=== PATIENT | female | born 1960 | race Caucasian/White ===

== ENCOUNTER 2017-12-30 15:18 | Inpatient (IN) ==
--- NOTE | 2017-12-30 15:44 | Emergency Department Note ---
Disposition Clinical Impression: DVT (deep venous thrombosis) Qualifiers: DVT location: lower extremity Affected thrombotic vein of extremity: popliteal Chronicity: acute Laterality: left Qualified Code(s): I82.432 - Acute embolism and thrombosis of left popliteal vein Disposition: Admitted As Inpatient Condition: Good Referrals: Terrance Ballesteros MD [Primary Care Provider] - Forms: ED Satisfaction Letter Time of Disposition: 17:54 Extremity Problem HPI - General Chief complaint: ED Extremity Problem,Nontraumatic Stated complaint: POSSIBLE DVT LEFT LEG Time Seen by Provider: 12/30/17 15:31 Source: patient Mode of arrival: ambulatory Limitations: no limitations Nursing Notes Reviewed: Yes Vital Signs Reviewed: Yes - History of Present Illness HPI Narrative: This is a 57 year-old female with history of HTN, HLD, DM, and DVT. She presents with left leg pain and swelling, from the posterior knee, down the leg (mainly the lateral aspect), to the left ankle. Symptoms began gradually 3 days ago without any trauma or other inciting event and have been worsening since then. Patient denies any associated chest pain, dyspnea, or skin changes. She had a DVT 3-4 days, treated with Lovenox and then Coumadin, and she is concerned that she may have again developed a DVT. Pt Subjective Complaint: extremity pain, extremity swelling Onset (ago): day(s) (3) Consistency: constant, Worsening Injury Location: left, lower extremity Pain Scale: 8 Quality: burning Improves with: nothing Worsens with: walking Associated symptoms: Reports: denies other symptoms. Denies: chest pain, shortness of breath, change in appearance, redness Context: history of DVT - Related Data Home Medications Medication Instructions Recorded Confirmed Furosemide [Lasix] 20 mg PO DAILY 10/12/17 11/16/17 Gabapentin [Neurontin] 3,000 mg PO TID 10/12/17 11/16/17 Losartan/HCTZ [Hyzaar 50-12.5 1 tab PO DAILY 10/12/17 11/16/17 Tablet] Metoprolol [Lopressor] 50 mg PO DAILY 10/12/17 11/16/17 Pravastatin Sodium [Pravachol] 20 mg PO DAILY 10/12/17 11/16/17 metFORMIN [Glucophage] 500 mg PO BIDWM 10/12/17 11/16/17 Previous Rx's Medication Instructions Recorded Cyclobenzaprine [Flexeril] 10 mg PO TID #30 tablet 11/11/16 Allergies Allergy/AdvReac Type Severity Reaction Status Date / Time acetaminophen [From Vicodin] AdvReac Nausea Verified 12/30/17 15:22 hydrocodone [From Vicodin] AdvReac Nausea Verified 12/30/17 15:22 Sulfa (Sulfonamide AdvReac Nausea Verified 12/30/17 15:22 Antibiotics) All systems ED: reviewed and negative except as stated. Constitutional: Denies: fever Cardiovascular: Denies: chest pain, palpitations Respiratory: Denies: dyspnea Gastrointestinal: Denies: abdominal pain Integumentary: Denies: rash, lesions Neurological: Denies: weakness, numbness Past Medical History - Past Medical History Medical history: Reports: arthritis, DVT, diabetes, fibromyalgia, GERD, hyperlipidemia, hypertension Surgical history: Reports: appendectomy, cholecystectomy, hysterectomy, other Psychiatric history: Reports: anxiety, depression - Social History Smoking Status: Never smoker Smokeless Tobacco Status: No Alcohol use: Reports: none Drug use: Reports: none Physical Exam - General Limitations: no limitations General appearance: alert, in no apparent distress - Head Head exam: atraumatic, normocephalic - Eye Eye exam: Present: normal appearance - Neck Neck exam: Present: normal inspection - Cardiovascular Cardiovascular exam: Present: regular rate, normal rhythm, normal heart sounds - Abdominal Exam Abdominal exam: Present: soft, Non-Tender. Absent: distention - Expanded Lower Extremity Exam Upper leg exam: Present: normal inspection Knee exam: Present: normal inspection, full ROM, tenderness (popliteal fossa). Absent: swelling Lower leg exam: Present: normal inspection, full ROM, tenderness (lateral aspect of left leg). Absent: swelling, ecchymosis, erythema, palpable cord Ankle exam: Present: normal inspection, full ROM. Absent: tenderness, swelling Foot/toe exam: Present: normal inspection, full ROM. Absent: tenderness, swelling Neurovascular/Tendon exam: Present: normal capillary refill. Absent: pulse deficit, motor deficit, sensory deficit, extremity cold to touch, pallor - Neurological Exam Neurological exam: Present: alert, oriented X3. Absent: motor sensory deficit - Psychiatric Psychiatric exam: Present: normal affect, normal mood - Skin Skin exam: Present: warm, dry, intact. Absent: erythema, pallor, mottled Course - Reevaluation(s) Reevaluation #1: Discussed duplex result with the foundry technician. Patient has LLE DVT from the popliteal distal (posterior tibial, peroneal). I'm not finding any absolute contraindications to outpatient therapy (proximal clot, evidence of PE, active cancer, elevated bleeding risk, etc.). I talked with patient about inpatient vs. outpatient management. She requests inpatient management. She is especially concerned as her mother from DVT/PE. Time: 16:59 - Consultations Consultation #1: Paged hospitalist. Time: 17:00 Consultation #2: Discussed case with Dr. Valencia. He would like to treat with Lovenox and has accepted patient for admission. Time: 17:53 Vital Signs Temperature 98.1 F 12/30/17 15:20 Pulse Rate 104 12/30/17 15:20 Respiratory Rate 16 12/30/17 15:20 Blood Pressure 164/94 12/30/17 15:20 O2 Sat by Pulse Oximetry 98 12/30/17 15:20 Temperature 98.1 F 12/30/17 15:20 Pulse Rate 101 12/30/17 15:50 Respiratory Rate 16 12/30/17 15:50 Blood Pressure 141/84 12/30/17 15:50 O2 Sat by Pulse Oximetry 96 12/30/17 15:50 Oxygen Delivery Oxygen Delivery Room Air Extremity Problem, Nontraumati - MDM Narrative Medical decision making narrative: This is a 57 year-old female with history of DVT, apparently unprovoked, who presented with left leg pain for the past 3 days. There is no history of trauma and there are no findings to suggest cellulitis. Although there is no objective swelling on exam, DVT is the most important differential to rule out. If duplex study is negative, we will recommend symptomatic treatment and close outpatient follow-up. - Lab Data Lab results reviewed: Yes I reviewed the patient's lab results. Result diagrams: 12/30/17 15:49 12/30/17 15:49 Lab Results 12/30/17 12/30/17 12/30/17 Range/Units 15:49 15:49 15:49 WBC 6.7 (4.3-11.1) K/mcL RBC 4.27 (3.82-4.97) M/mcL Hgb 12.1 (11.5-15.4) g/dL Hct 36.9 (35.3-44.9) % MCV 86.4 (83.0-100.0) fL MCH 28.3 (28.0-33.3) pg MCHC 32.8 (31.6-35.5) g/dL RDW 12.7 (11.5-14.5) % Plt Count 295 (140-400) K/mcL MPV 8.5 L (9.4-12.4) fL Immature Gran % 0.1 (0-4) % Seg Neutrophils % 54.2 % Lymphocytes % 34.6 % Monocytes % 7.1 % Eosinophils % 3.4 % Basophils % 0.6 % Neutrophils # 3.7 (1.6-8.9) K/mcL Lymphocytes # 2.3 (0.6-4.6) K/mcL Monocytes # 0.5 (0.0-1.3) K/mcL Eosinophils # 0.2 (0.0-0.6) K/mcL Basophils # 0.0 (0.0-0.2) K/mcL PT 10.6 (9.4-12.1) Seconds INR 1.0 APTT 29.2 (26.0-36.0) Seconds Sodium 139 (136-145) mEq/L Potassium 3.9 (3.5-5.1) mEq/L Chloride 104 (98-107) mEq/L Carbon Dioxide 27 (23-29) mEq/L BUN 12 (6-20) mg/dL Creatinine 0.50 L (0.60-1.20) mg/dL Est GFR ( Amer) > 60 (> 60) Est GFR (Non-Af Amer) > 60 (> 60) BUN/Creatinine Ratio 24 (6-26) Glucose 175 H (70-105) mg/dL Calculated Osmolality 292 (280-300) Calcium 9.5 (8.6-10.3) mg/dL
[2017-12-30 16:16] LABS: Basophils % 0.6 %; Eosinophils # 0.2 K/mcL (0.0-0.6); Eosinophils % 3.4 %; Hematocrit 36.9 % (35.3-44.9); Hemoglobin 12.1 g/dL (11.5-15.4); Immature Granulocytes % 0.1 % (0-4); Lymphocytes # 2.3 K/mcL (0.6-4.6); Lymphocytes % 34.6 %; Mean Corpuscular HGB Conc 32.8 g/dL (31.6-35.5); Mean Corpuscular Hemoglobin 28.3 pg (28.0-33.3); Mean Corpuscular Volume 86.4 fL (83.0-100.0); Mean Platelet Volume 8.5 fL (9.4-12.4); Monocytes # 0.5 K/mcL (0.0-1.3); Monocytes % 7.1 %; Neutrophils # 3.7 K/mcL (1.6-8.9); Platelet Count 295 K/mcL (140-400); Red Blood Count 4.27 M/mcL (3.82-4.97); Red Cell Distribution Width 12.7 % (11.5-14.5); Segmented Neutrophils % 54.2 %
[2017-12-30 16:22] LABS: Prothrombin Time 10.6 Seconds (9.4-12.1)
[2017-12-30 16:24] LABS: Activated Partial Thrombo Time 29.2 Seconds (26.0-36.0)
[2017-12-30 16:31] LABS: BUN/Creatinine Ratio 24 (6-26); Blood Urea Nitrogen 12 mg/dL (6-20); Calcium 9.5 mg/dL (8.6-10.3); Carbon Dioxide 27 mEq/L (23-29); Chloride 104 mEq/L (98-107); Glucose 175 mg/dL (70-105); Osmolality,Calculated 292 (280-300); Potassium 3.9 mEq/L (3.5-5.1); Sodium 139 mEq/L (136-145); eGFR For African Americans > 60 (> 60); eGFR For Non-African Americans > 60 (> 60)
[2017-12-30] MEDS ORDERED: *HR* Enoxaparin 30 MG/0.3 ML SYRINGE SQ ONE (17:52)
[2017-12-30] MEDS ORDERED: *HR* Nalbuphine 10 MG/ML AMPUL IVP STA (18:08)
--- NOTE | 2017-12-30 20:18 | Internal Med History&Physical ---
<Mc Garzon P - Last Filed: 12/30/17 21:22> Date of Encounter: 12/30/17 Internal Medicine - H&P: HPI History of present illness: Ms. Menard is a 57 year old female Internal Medicine - H&P: Meds Cyclobenzaprine [Flexeril] 10 mg PO TID #30 tablet 11/11/16 [Rx] Losartan/HCTZ [Hyzaar 50-12.5 Tablet] 1 tab PO DAILY 10/12/17 [History] Metoprolol [Lopressor] 25 mg PO BID 10/12/17 [History] Pravastatin Sodium [Pravachol] 20 mg PO DAILY 10/12/17 [History] RX: Furosemide [Lasix] 20 mg PO DAILY 10/12/17 [History] RX: Gabapentin [Neurontin] 300 mg PO TID 10/12/17 [History] metFORMIN [Glucophage] 500 mg PO BIDWM 10/12/17 [History] 3 Allergy/AdvReac Type Severity Reaction Status Date / Time No Known Drug Allergies Allergy None Verified 12/30/17 22:05 acetaminophen [From Vicodin] AdvReac Mild Nausea Verified 12/30/17 21:49 hydrocodone [From Vicodin] AdvReac Mild Nausea Verified 12/30/17 21:49 milnacipran [From Savella] AdvReac Mild Nausea Verified 12/30/17 21:49 Sulfa (Sulfonamide AdvReac Mild Nausea Verified 12/30/17 21:49 Antibiotics) All Systems PM: A 10-system review of systems was performed and is negative for pertinent findings except as documented above in the HPI. - Constitutional Vitals: Temp Pulse Resp BP Pulse Ox 98.2 F 86 17 117/77 95 12/30/17 18:57 12/30/17 18:57 12/30/17 18:57 12/30/17 18:57 12/30/17 20:12 Internal Med - H&P Results - Labs CBC & Chem 7: 12/30/17 15:49 12/30/17 15:49 - Attending Attestation I examined this patient and my medical decision-making was reviewed with the Resident Physician. I agree with the documented findings, disposition and treatment plan as described except to the extent set forth below. agree with assessment and plan bridging from lovenox to coumadin in patient close monitoring of respiratory status. - Assessment and plan (1) DVT (deep venous thrombosis) Current Visit: Yes Status: Acute Qualifiers: DVT location: lower extremity Affected thrombotic vein of extremity: popliteal Chronicity: acute Laterality: left Qualified Code(s): I82.432 - Acute embolism and thrombosis of left popliteal vein (2) HTN (hypertension) Current Visit: Yes Status: Acute Qualifiers: Qualified Code(s): I10 - Essential (primary) hypertension (3) Hyperlipidemia Current Visit: Yes Status: Acute Qualifiers: Qualified Code(s): E78.5 - Hyperlipidemia, unspecified (4) Diabetes Current Visit: Yes Status: Acute Qualifiers: Qualified Code(s): E11.9 - Type 2 diabetes mellitus without complications (5) GERD (gastroesophageal reflux disease) Current Visit: Yes Status: Acute Qualifiers: Qualified Code(s): K21.9 - Gastro-esophageal reflux disease without esophagitis (6) Morbid obesity due to excess calories Current Visit: Yes Status: Acute - Time Spent With Patient Total time spent is greater than 50% in coordination of care (as documented) at patient's floor/unit and/or counseling patient: <Mario Sandoval - Last Filed: 12/30/17 22:29> Date of Encounter: 12/30/17 Time of Encounter: 20:07 Internal Medicine - H&P: HPI Chief complaint: left lower leg pain Admitted From: Home Plans for Post Hospital Care: Home History of present illness: Ms. Menard is a 57 year old female w/ pmh of htn, hld, dm, morbid obesity, unprovoked dvt 5 years ago, and currently being worked up for vaginal cancer presents with 3-4 day dull, burning 10/10 progressively worsening posterior below knee leg pain with associated swelling. Patient has attempted to elevate leg and taken tylenol without relief. Pain is worsened when she walks. Patient denies CP, sob at rest or exertion, palpitations, or racing heart, coughing up of blood. Patient is active and walks on a daily basis, and had a colonoscopy in october but no surgeries in the last 4 weeks. Patient denies hormone replacement treatment or use. Previous DVT was around 5 years ago, she was successfully bridged to coumadin at the time, and was further worked up at [facility]. She was on anticoagulation at the time for <1 month. At that time she was further worked up but was told she was "clear". Patient is concerned because her mother of PE, and she has a sister who has a hx of DVT's as well. Patient is currently being worked up at [facility] for vaginal cancer. She her first appointment later this month. She has had vaginal pain, dryness and "build up" for a few years, and her sister has been diagnosed with vaginal cancer. Her brother just recently of an unknown cancer. Her mother also had unknown cancer. Patient denies smoking history. Past Med Surg Social Fam HX - Past Medical History Medical history: arthritis, DVT, diabetes, fibromyalgia, GERD, hyperlipidemia, hypertension Psychiatric history: anxiety, depression - Past Surgical History Surgical History: appendectomy, cholecystectomy, hysterectomy, other - Social History Smoking Status: Never smoker Smokeless Tobacco Status: No Alcohol use: none Drug use: none All Systems PM: A 10-system review of systems was performed and is negative for pertinent findings except as documented above in the HPI. - Constitutional Constitutional: no chills, no excessive sweating, no fatigue, no fever(s), no falls, no lethargy, no malaise, no night sweats, no weakness, no weight gain, no weight loss - EENT Eyes: no change in vision, no discharge, no pain, no photophobia Ears: no ear discharge, no ear pain, no tinnitus Nose, mouth and throat: no dry mouth, no dysphagia, no nasal discharge, no neck pain, no sore throat - Cardiovascular Cardiovascular ROS IM: edema (generalized bilateral lower leg edema L>R), no chest pain, no claudication, no diaphoresis, no dyspnea, no dyspnea on exertion , no irregular heart rhythm, no lightheadedness, no orthopnea, no palpitations, no paroxysmal nocturnal dyspnea, no syncope - Respiratory Respiratory: no cough, no dyspnea, no hemoptysis, no dyspnea on exertion, no wheezing, no snoring, no stridor, no pain on inspiration, no chest congestion, no excessive phlegm production - Gastrointestinal Gastrointestinal: no abdominal pain, no diarrhea, no hematemesis, no hematochezia, no melena, no nausea, no vomiting - Genitourinary Genitourinary: no change in urinary stream, no dysuria, no flank pain, no hematuria - Musculoskeletal Musculoskeletal ROS IM: no atrophy, no joint swelling, no limited range of motion, no muscle cramps, no muscle weakness, no myalgias, no neck pain, no numbness, no stiffness, no tingling - Integumentary Integumentary IM: no new lesions, no non-healing lesions, no pruritus, no rash, no skin ulcer, no sores, no unusual bruising, no jaundice - Neurological Neurological ROS: no confusion, no convulsions, no focal weakness, no headache(s ), no numbness, no tingling, no tremor(s) - Hematologic/Lymphatic Hematologic/Lymphatic: no easy bruising - Constitutional Vitals: Temp Pulse Resp BP Pulse Ox 98.2 F 86 17 117/77 95 12/30/17 18:57 12/30/17 18:57 12/30/17 18:57 12/30/17 18:57 12/30/17 18:57 General appearance: Present: A&O X 3, morbidly obese, pleasant, no acute distress, answers questions appropriately - Head Head exam: Present: atraumatic, normocephalic - Eye Eye exam: Present: PERRL, conjuntiva pink, sclera anicteric Pupils: Present: PERRL - Neck Neck exam general surgery: Present: supple, trachea midline. Absent: lymphadenopathy - Respiratory Respiratory exam: Present: CTAB. Absent: accessory muscle use, rales, rhonchi, wheezes - Cardiovascular Cardiovascular exam: Present: RRR. Absent: bradycardia, clicks, diastolic murmur, distant heart sounds, gallop, irregular rhythm, JVD, rubs, systolic murmur - GI/Abdominal GI/Abdominal exam: Present: normal bowel sounds, soft, no peritoneal signs. Absent: distended, firm, guarding, hepatomegaly, pulsatile mass, rebound, rigid , splenomegaly, tenderness - Extremities Exam Extremities exam: Present: full ROM, normal capillary refill, tenderness (left popliteal, and left gastro), warm, radial pulses palpable and symmetrical. Absent: calf tenderness, cyanotic, pedal edema (generalized swelling, no pitting edema in lower extremities) - Neurological Exam Neurological exam: Present: alert, CN II-XII intact, oriented X3, no focal deficits, strengths equal and symetr throughout. Absent: motor sensory deficit , pronater drift, facial droop, speech deficit - Skin Skin exam: Present: dry, intact Internal Med - H&P Results - Labs CBC & Chem 7: 12/30/17 15:49 12/30/17 15:49 - Assessment and plan (1) DVT (deep venous thrombosis) Current Visit: Yes Status: Acute Assessment and plan: unrpovoked LLE DVT. Duplex was performed in ED which confirmed patient has LLE DVT distal of popliteal (posterior tibial, peroneal). Patient's mother of PE, and patient has significant risks including age >50, HR >100 on admission, "unilateral leg swelling", prior unprovoked DVT, and possible vaginal cancer. PERC score of 3. WELL's PE score of 6-7 (with possible recent cancer hx). Patient was started on Lovenox, with plan to bridge to Coumadin. Since patient was started on Lovenox, further anticoagulation studies to be worked up outpatient. Patient also may have had studies performed based on patient's history, unable to locate records in [facility] or [facility]. - bridge to coumadin, goal INR 2-3 - monitor vitals Qualifiers: DVT location: lower extremity Affected thrombotic vein of extremity: popliteal Chronicity: acute Laterality: left Qualified Code(s): I82.432 - Acute embolism and thrombosis of left popliteal vein (2) HTN (hypertension) Current Visit: Yes Status: Acute Assessment and plan: continue home Rx (3) Hyperlipidemia Current Visit: Yes Status: Acute Assessment and plan: continue home rx (4) Diabetes Current Visit: Yes Status: Acute Assessment and plan: hold home metformin. Follow BG (5) GERD (gastroesophageal reflux disease) Current Visit: Yes Status: Acute Assessment and plan: chronic and stable at this time (6) Morbid obesity due to excess calories Current Visit: Yes Status: Acute Assessment and plan: educated patient on benefits of weight loss. to be followed up outpatient - Time Spent With Patient Total time spent is greater than 50% in coordination of care (as documented) at patient's floor/unit and/or counseling patient:
[2017-12-30] MEDS ORDERED: Naloxone 0.4 MG/ML INJ IVP PRN (20:45)
[2017-12-30] MEDS ORDERED: *HR* Warfarin 1 MG TABLET PO ONE (20:54)
[2017-12-30] MEDS ORDERED: Ondansetron 4 MG/2 ML VIAL IVP PRN (22:44)
[2017-12-30] MEDS ORDERED: *HR* Warfarin 5 MG TABLET PO ONE (22:45)
[2017-12-30] MEDS: Acetaminophen 325 MG TABLET PO PRN (23:04)
[2017-12-30] MEDS: Gabapentin 300 MG CAPSULE PO SCH (23:05)
[2017-12-31] MEDS ORDERED: Ondansetron 4 MG/2 ML VIAL IVP SCH
[2017-12-31 04:56] LABS: Hematocrit 33.6 % (35.3-44.9); Hemoglobin 11.1 g/dL (11.5-15.4); Mean Corpuscular Hemoglobin 28.6 pg (28.0-33.3); Mean Corpuscular Volume 86.6 fL (83.0-100.0); Mean Platelet Volume 8.4 fL (9.4-12.4); Platelet Count 304 K/mcL (140-400); Red Blood Count 3.88 M/mcL (3.82-4.97); Red Cell Distribution Width 12.8 % (11.5-14.5)
[2017-12-31 05:07] LABS: BUN/Creatinine Ratio 27 (6-26); Blood Urea Nitrogen 12 mg/dL (6-20); Calcium 9.2 mg/dL (8.6-10.3); Carbon Dioxide 27 mEq/L (23-29); Chloride 104 mEq/L (98-107); Glucose 100 mg/dL (70-105); Osmolality,Calculated 286 (280-300); Potassium 4.2 mEq/L (3.5-5.1); Sodium 138 mEq/L (136-145); eGFR For African Americans > 60 (> 60); eGFR For Non-African Americans > 60 (> 60)
[2017-12-31] MEDS: Losartan/HCTZ 50-12.5 TABLET PO SCH (09:27)
[2017-12-31] MEDS: Gabapentin 300 MG CAPSULE PO SCH ×3 (09:27→20:20)
[2017-12-31] MEDS: Acetaminophen 325 MG TABLET PO PRN (09:27)
--- NOTE | 2017-12-31 11:47 | Internal Med Progress Note ---
Date of Encounter: 12/31/17 Time of Encounter: 11:40 - Assessment and plan (1) DVT (deep venous thrombosis) Current Visit: Yes Status: Acute Assessment and plan: unrpovoked LLE DVT. Duplex was performed in ED which confirmed patient has LLE DVT distal of popliteal (posterior tibial, peroneal). Continue lovenox with coumadin bridge. Obtain CT angio to r/o PE. Appreciate oncology recs Qualifiers: DVT location: lower extremity Affected thrombotic vein of extremity: popliteal Chronicity: acute Laterality: left Qualified Code(s): I82.432 - Acute embolism and thrombosis of left popliteal vein (2) HTN (hypertension) Current Visit: Yes Status: Acute Assessment and plan: continue home Rx Qualifiers: Qualified Code(s): I10 - Essential (primary) hypertension (3) Hyperlipidemia Current Visit: Yes Status: Acute Assessment and plan: continue home rx Qualifiers: Qualified Code(s): E78.5 - Hyperlipidemia, unspecified (4) Diabetes Current Visit: Yes Status: Acute Assessment and plan: hold home metformin. Follow BG Qualifiers: Qualified Code(s): E11.9 - Type 2 diabetes mellitus without complications (5) GERD (gastroesophageal reflux disease) Current Visit: Yes Status: Acute Assessment and plan: chronic and stable at this time Qualifiers: Esophagitis presence: without esophagitis Qualified Code(s): K21.9 - Gastro -esophageal reflux disease without esophagitis (6) Morbid obesity due to excess calories Current Visit: Yes Status: Acute Assessment and plan: educated patient on benefits of weight loss. to be followed up outpatient - Time Spent With Patient Total time spent is greater than 50% in coordination of care (as documented) at patient's floor/unit and/or counseling patient: - Subjective Interval history: No acute events overnight - Constitutional Vitals: Temp Pulse Resp BP Pulse Ox 98.1 F 78 15 131/87 97 12/31/17 10:42 12/31/17 10:42 12/31/17 10:42 12/31/17 10:42 12/31/17 10:42 General appearance: Present: A&O X 3, morbidly obese, pleasant, no acute distress, answers questions appropriately - Head Head exam: Present: atraumatic, normocephalic - Eye Eye exam: Present: PERRL, conjuntiva pink, sclera anicteric Pupils: Present: PERRL - Neck Neck exam general surgery: Present: supple, trachea midline. Absent: lymphadenopathy - Respiratory Respiratory exam: Present: CTAB. Absent: accessory muscle use, rales, rhonchi, wheezes - Cardiovascular Cardiovascular exam: Present: RRR, +S1, +S2. Absent: diastolic murmur, gallop, rubs, systolic murmur - GI/Abdominal GI/Abdominal exam: Present: normal bowel sounds, soft, no peritoneal signs. Absent: distended, tenderness - Extremities Exam Extremities exam: Present: warm, radial pulses palpable and symmetrical. Absent : calf tenderness, cyanotic, pedal edema - Neurological Exam Neurological exam: Present: CN II-XII intact, oriented X3, no focal deficits. Absent: pronater drift, facial droop, speech deficit - Skin Skin exam: Present: dry, intact Internal Medicine: Result - Labs CBC & Chem 7: 12/31/17 04:30 12/31/17 04:30 Labs: Short CBC 12/31/17 Range/Units 04:30 WBC 7.4 (4.3-11.1) K/mcL Hgb 11.1 L (11.5-15.4) g/dL Hct 33.6 L (35.3-44.9) % Plt Count 304 (140-400) K/mcL BMP 12/31/17 04:30 Sodium 138 Potassium 4.2 Chloride 104 Carbon Dioxide 27 BUN 12 Creatinine 0.45 L Glucose 100 Calcium 9.2 - ABG Interpretation ABG results: PT/INR, D-dimer PT 11.0 Seconds (9.4-12.1) 12/31/17 04:30 - VTE Reasons for not Prescribing Prophylaxis: Not indicated-Anticoagulated or INR therapeutic Consult Discharge Plan - Plan Referrals: Terrance Ballesteros MD [Primary Care Provider] -
[2017-12-31] MEDS ORDERED: Isovue-370 500 ML INFUS..BTL IV ONE (12:10)
--- NOTE | 2017-12-31 13:03 | Oncology Inp Consult Note ---
Date of Encounter: 12/31/17 Time of Encounter: 12:40 Assessment and Plan (1) DVT (deep venous thrombosis) Status: Acute Assessment and plan: She has recurrence, unprovoked left leg deep vein thrombosis. Lifelong anticoagulation is indicated. She would be a good candidate for a DOAC. I would have been social work evaluate for coverage. If she does not have adequate coverage, Lovenox with Coumadin is reasonable as well. There is no indication for thrombophilia testing at this juncture. Thrombophilia testing will not have any implications for this patient specifically. Given her family history, evaluation for prothrombin gene and factor V leiden mutational analysis could be considered. However, as her 3 daughters have all delivered children and have had prior control exposure without DVT, I am uncertain it will have any implications. 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 I will arrange follow-up in our clinic with Dr. Hubbard. I will otherwise Sine- Off. Do not hesitate to contact me with any concerns or questions Qualifiers: DVT location: lower extremity Affected thrombotic vein of extremity: popliteal Chronicity: acute Laterality: left Qualified Code(s): I82.432 - Acute embolism and thrombosis of left popliteal vein - Data of Consult Requesting Physician: Colin Valencia CNP Primary Care Provider: Terrance Ballesteros - Consult Narrative Reason for consult: Recurrent left leg DVT History of present illness: Ms. Menard is a 57 year old female with a history of an unprovoked left leg DVT approximately 5 years ago. She was not on OCPs at that time nor had any previous instigating risk factor or event. Per report, she was managed with Lovenox and then "one-month" of Coumadin. She established care with Dr. Singh who discussed continuation of therapy indefinitely as opposed cessation the patient elected for cessation. About 3 days ago. She developed increase burning pain, tingling and swelling of the left leg. This prompted her to present to the emergency department where duplex doppler identified a DVT in the left popliteal, left posterior tibial and left peroneal veins. There is a superficial thrombus seen in the left lesser saphenous vein as well. She has been placed on Lovenox with plan to transition to coumadin. Again, there were no aggravating circumstances prior to this event. She has a strong family history of deep vein thrombosis including her mother and sister. She has 3 daughters. All have children and have likely taken all contraceptives in the past without event. Today, she continues have left leg pain. It is modestly improved from admission. No chest pain or palpitations. She is tolerating Lovenox well. She is open to the idea of other alternatives outside of Coumadin if they are available to her. She has established care with INSURANCE UNDERWRITING ASSISTANT at [facility]. There are evaluating abnormal vaginal finding. There is no certainty this is malignancy from what she tells me today. Past Med Surg Social Fam HX - Past Medical History Medical history: arthritis, DVT, diabetes, fibromyalgia, GERD, hyperlipidemia, hypertension Psychiatric history: anxiety, depression - Past Surgical History Surgical History: appendectomy, cholecystectomy, hysterectomy, other - Social History Smoking Status: Never smoker Smokeless Tobacco Status: No Alcohol use: none Drug use: none - Family History Brother Hx Family Cancer: Yes Sister Hx Family Cancer: Yes Mother Living Status: Hx Family Cardiac Disorders: Yes (Hypertension) Hx Family Medical Disorders: Yes (Blood clots) - Additional Family History Additional family history: Deep venous thrombosis/PE involving her mother as well as sister. Medications and Allergies Cyclobenzaprine [Flexeril] 10 mg PO TID #30 tablet 11/11/16 [Rx] Furosemide [Lasix] 20 mg PO DAILY 10/12/17 [History] Gabapentin [Neurontin] 300 mg PO TID 10/12/17 [History] Losartan/HCTZ [Hyzaar 50-12.5 Tablet] 1 tab PO DAILY 10/12/17 [History] Metoprolol [Lopressor] 25 mg PO BID 10/12/17 [History] Pravastatin Sodium [Pravachol] 20 mg PO DAILY 10/12/17 [History] metFORMIN [Glucophage] 500 mg PO BIDWM 10/12/17 [History] 3 Allergy/AdvReac Type Severity Reaction Status Date / Time No Known Drug Allergies Allergy None Verified 12/30/17 22:05 acetaminophen [From Vicodin] AdvReac Mild Nausea Verified 12/30/17 21:49 hydrocodone [From Vicodin] AdvReac Mild Nausea Verified 12/30/17 21:49 milnacipran [From Savella] AdvReac Mild Nausea Verified 12/30/17 21:49 Sulfa (Sulfonamide AdvReac Mild Nausea Verified 12/30/17 21:49 Antibiotics) All systems: reviewed and no additional remarkable complaints except as stated Constitutional: Present: fatigue, weight gain Eyes: Present: as per HPI Ears: Present: as per HPI Nose, mouth and throat: Present: as per HPI Cardiovascular: Present: dyspnea on exertion Respiratory: Present: as per HPI Gastrointestinal: Present: as per HPI Genitourinary: Present: as per HPI Menstruation: as per HPI, post menopausal Musculoskeletal: Present: limited range of motion, stiffness Neurological: Present: as per HPI Oncology - Exam - Constitutional Vitals: Temp Pulse Resp BP Pulse Ox 98.1 F 78 15 131/87 97 12/31/17 10:42 12/31/17 10:42 12/31/17 10:42 12/31/17 10:42 12/31/17 10:42 General appearance: morbidly obese, no acute distress - Head Head exam: Present: atraumatic, normal inspection, normocephalic - Eye Eye exam: Present: normal appearance, conjuntiva pink, sclera anicteric - ENT ENT exam: Present: mucous membranes moist, normal oropharynx - Neck Neck exam: Present: full ROM, normal inspection - Respiratory Respiratory exam: Present: CTAB - Cardiovascular Cardiovascular exam: Present: RRR - GI/Abdominal GI/Abdominal exam: Present: normal bowel sounds, soft - Extremities Exam Extremities exam: Present: calf tenderness (on left with fullness proximal. No erythema), pedal edema - Neurological Exam Neurological exam: Present: alert, CN II-XII intact, oriented X3, no focal deficits Oncology - Results Labs: Short CBC 12/31/17 Range/Units 04:30 WBC 7.4 (4.3-11.1) K/mcL Hgb 11.1 L (11.5-15.4) g/dL Hct 33.6 L (35.3-44.9) % Plt Count 304 (140-400) K/mcL BMP 12/31/17 04:30 Sodium 138 Potassium 4.2 Chloride 104 Carbon Dioxide 27 BUN 12 Creatinine 0.45 L Glucose 100 Calcium 9.2 Consult Discharge Plan - Plan Referrals: Terrance Ballesteros MD [Primary Care Provider] -
[2017-12-31] MEDS: traMADol 50 MG TABLET PO PRN (13:10)
[2017-12-31] MEDS ORDERED: *HR* Warfarin 1 MG TABLET PO SCH (18:00)
[2017-12-31] MEDS ORDERED: *HR* Warfarin 5 MG TABLET PO ONE (18:00)
[2017-12-31] MEDS ORDERED: Warfarin perPT PO PRN (18:00)
[2017-12-31] MEDS: *HR* Enoxaparin 120 MG/0.8 ML SYRINGE SQ SCH (18:15)
[2018-01-01 04:58] LABS: Prothrombin Time 11.1 Seconds (9.4-12.1)
[2018-01-01] MEDS: *HR* Enoxaparin 120 MG/0.8 ML SYRINGE SQ SCH ×2 (05:32→17:03)
[2018-01-01] MEDS: Gabapentin 300 MG CAPSULE PO SCH ×3 (10:05→20:04)
[2018-01-01] MEDS: Losartan/HCTZ 50-12.5 TABLET PO SCH (10:06)
[2018-01-01] MEDS: traMADol 50 MG TABLET PO PRN ×2 (10:06→20:04)
--- NOTE | 2018-01-01 10:35 | Internal Med Progress Note ---
Date of Encounter: 01/01/18 Time of Encounter: 10:30 - Assessment and plan (1) DVT (deep venous thrombosis) Current Visit: Yes Status: Acute Assessment and plan: unrpovoked LLE DVT. Duplex was performed in ED which confirmed patient has LLE DVT distal of popliteal (posterior tibial, peroneal). Continue lovenox with coumadin bridge. CT angio came back negative for PE. Will transition patient to xarelto if covered by her insurance (2) HTN (hypertension) Current Visit: Yes Status: Acute Assessment and plan: continue home Rx Qualifiers: Qualified Code(s): I10 - Essential (primary) hypertension (3) Hyperlipidemia Current Visit: Yes Status: Acute Assessment and plan: continue home rx Qualifiers: Qualified Code(s): E78.5 - Hyperlipidemia, unspecified (4) Diabetes Current Visit: Yes Status: Acute Assessment and plan: hold home metformin. Follow BG Qualifiers: Qualified Code(s): E11.9 - Type 2 diabetes mellitus without complications (5) GERD (gastroesophageal reflux disease) Current Visit: Yes Status: Acute Assessment and plan: chronic and stable at this time Qualifiers: Esophagitis presence: without esophagitis Qualified Code(s): K21.9 - Gastro -esophageal reflux disease without esophagitis (6) Morbid obesity due to excess calories Current Visit: Yes Status: Acute Assessment and plan: educated patient on benefits of weight loss. to be followed up outpatient - Time Spent With Patient Total time spent is greater than 50% in coordination of care (as documented) at patient's floor/unit and/or counseling patient: - Subjective Interval history: No acute events overnight - Constitutional Vitals: Temp Pulse Resp BP Pulse Ox 98.3 F 74 15 123/81 97 01/01/18 07:30 01/01/18 07:30 01/01/18 07:30 01/01/18 07:30 01/01/18 07:30 General appearance: Present: A&O X 3, morbidly obese, pleasant, no acute distress, answers questions appropriately - Head Head exam: Present: atraumatic, normocephalic - Eye Eye exam: Present: PERRL, conjuntiva pink, sclera anicteric Pupils: Present: PERRL - Neck Neck exam general surgery: Present: supple, trachea midline. Absent: lymphadenopathy - Respiratory Respiratory exam: Present: CTAB. Absent: accessory muscle use, rales, rhonchi, wheezes - Cardiovascular Cardiovascular exam: Present: RRR, +S1, +S2. Absent: diastolic murmur, gallop, rubs, systolic murmur - GI/Abdominal GI/Abdominal exam: Present: normal bowel sounds, soft, no peritoneal signs. Absent: distended, tenderness - Extremities Exam Extremities exam: Present: warm, radial pulses palpable and symmetrical. Absent : calf tenderness, cyanotic, pedal edema - Neurological Exam Neurological exam: Present: CN II-XII intact, oriented X3, no focal deficits. Absent: pronater drift, facial droop, speech deficit - Skin Skin exam: Present: dry, intact Internal Medicine: Result - Labs CBC & Chem 7: 12/31/17 04:30 12/31/17 04:30 - ABG Interpretation ABG results: PT/INR, D-dimer PT 11.1 Seconds (9.4-12.1) 01/01/18 03:57 - Impressions Impressions Chest CTA 12/31/17 12:10 IMPRESSION: 1. No evidence for acute pulmonary embolism. 2. No evidence for pneumonia. 3. Unchanged 5 mm calcified nodule superior segment right lower lobe D/ / Holden Torres MD / Holden Torres MD Interpreting Provider: Holden Torres MD - VTE Reasons for not Prescribing Prophylaxis: Not indicated-Anticoagulated or INR therapeutic Consult Discharge Plan - Plan Referrals: Terrance Ballesteros MD [Primary Care Provider] -
[2018-01-01] MEDS ORDERED: *HR* Warfarin 7.5 MG TABLET PO ONE (18:00)
[2018-01-02 04:39] LABS: INR 1.2; Prothrombin Time 12.5 Seconds (9.4-12.1)
[2018-01-02] MEDS: *HR* Enoxaparin 120 MG/0.8 ML SYRINGE SQ SCH (05:37)
[2018-01-02] MEDS: Gabapentin 300 MG CAPSULE PO SCH (09:23)
[2018-01-02] MEDS: Losartan/HCTZ 50-12.5 TABLET PO SCH (09:23)
[2018-01-02 10:34] VITALS: BP 113/77
--- NOTE | 2018-01-02 11:52 | Discharge Summary ---
- NOTES TO OUTPATIENT PROVIDER Notes to Outpatient Provider: Follow up with hematology Orders not resulted at time of discharge: Pending orders 01/03/18 04:00 PT/INR [Prothrombin Time INR] [COAG] AM 0400 01/04/18 04:00 PT/INR [Prothrombin Time INR] [COAG] AM 0400 01/05/18 04:00 PT/INR [Prothrombin Time INR] [COAG] AM 0400 Date of Encounter: 01/02/18 Time of Encounter: 11:30 - Discharge Diagnosis (1) DVT (deep venous thrombosis) Priority: Primary Status: Acute Assessment and Plan: 57 year old female with pmh of dvt presents with complaint of left calf pain. Duplex was performed in ED which confirmed patient has LLE DVT distal of popliteal (posterior tibial, peroneal). She was started on lovenox with coumadin bridge. CT angio came back negative for PE. She was seen by hematology who determined she could be transiitoned to a NOAC if covered by her insurance. She was subsequently transitioned to xarelto on discharge once confirmation was received that she had insurance coverage Qualifiers: DVT location: lower extremity Affected thrombotic vein of extremity: unspecified vein of extremity Chronicity: acute Laterality: left Qualified Code(s): I82.402 - Acute embolism and thrombosis of unspecified deep veins of left lower extremity (2) HTN (hypertension) Priority: Secondary Status: Acute Assessment and Plan: continue home Rx Qualifiers: Qualified Code(s): I10 - Essential (primary) hypertension (3) Hyperlipidemia Priority: Secondary Status: Acute Assessment and Plan: continue home rx Qualifiers: Qualified Code(s): E78.5 - Hyperlipidemia, unspecified (4) Diabetes Priority: Secondary Status: Acute Assessment and Plan: hold home metformin. Follow BG Qualifiers: Qualified Code(s): E11.9 - Type 2 diabetes mellitus without complications (5) GERD (gastroesophageal reflux disease) Priority: Secondary Status: Acute Assessment and Plan: chronic and stable at this time Qualifiers: Esophagitis presence: without esophagitis Qualified Code(s): K21.9 - Gastro -esophageal reflux disease without esophagitis (6) Morbid obesity due to excess calories Priority: Secondary Status: Acute Assessment and Plan: educated patient on benefits of weight loss. to be followed up outpatient Hospital course: Ms. Menard is a 57 year old female - Time Spent with Patient Total time spent providing and/or coordinating discharge services: - Discharge Medications Prescriptions: Rivaroxaban [Xarelto] 15 mg PO BID 21 Days #42 tablet Rivaroxaban [Xarelto] 20 mg PO DAILY 60 Days #60 tablet Home Medications: Cyclobenzaprine [Flexeril] 10 mg PO TID #30 tablet 11/11/16 [Rx] Furosemide [Lasix] 20 mg PO DAILY 10/12/17 [History] Gabapentin [Neurontin] 300 mg PO TID 10/12/17 [History] Losartan/HCTZ [Hyzaar 50-12.5 Tablet] 1 tab PO DAILY 10/12/17 [History] Metoprolol [Lopressor] 25 mg PO BID 10/12/17 [History] Pravastatin Sodium [Pravachol] 20 mg PO DAILY 10/12/17 [History] metFORMIN [Glucophage] 500 mg PO BIDWM 10/12/17 [History] Rivaroxaban [Xarelto] 15 mg PO BID 21 Days #42 tablet 01/02/18 [Rx] Rivaroxaban [Xarelto] 20 mg PO DAILY 60 Days #60 tablet 01/02/18 [Rx] Allergies/Adverse Reactions: 3 Allergy/AdvReac Type Severity Reaction Status Date / Time No Known Drug Allergies Allergy None Verified 12/30/17 22:05 acetaminophen [From Vicodin] AdvReac Mild Nausea Verified 12/30/17 21:49 hydrocodone [From Vicodin] AdvReac Mild Nausea Verified 12/30/17 21:49 milnacipran [From Savella] AdvReac Mild Nausea Verified 12/30/17 21:49 Sulfa (Sulfonamide AdvReac Mild Nausea Verified 12/30/17 21:49 Antibiotics) Date of admission: 12/30/17 20:45 Primary care physician: Terrance Ballesteros Consults: 12/30/17 22:26 Consult to Oncology Hematology [CONS] Routine Consulting Provider: Dayna Banegas Reason for Consult: unprovoked recurrent DVT Call Completed: No 01/01/18 10:31 Consult to Trial Lawyer [CONS] Routine Reason for SW Consult: clearance for xarelto fci anticoagulation ( insurance coverage) - Constitutional Vitals: Temp Pulse Resp BP Pulse Ox 98.7 F 78 16 113/77 94 01/02/18 10:30 01/02/18 10:30 01/02/18 10:30 01/02/18 10:30 01/02/18 10:30 General appearance: Present: A&O X 3, morbidly obese, pleasant, no acute distress, answers questions appropriately - Head Head exam: Present: atraumatic, normocephalic - Eye Eye exam: Present: PERRL, conjuntiva pink, sclera anicteric Pupils: Present: PERRL - Neck Neck exam general surgery: Present: supple, trachea midline. Absent: lymphadenopathy - Respiratory Respiratory exam: Present: CTAB. Absent: accessory muscle use, rales, rhonchi, wheezes - Cardiovascular Cardiovascular exam: Present: RRR, +S1, +S2. Absent: diastolic murmur, gallop, rubs, systolic murmur - GI/Abdominal GI/Abdominal exam: Present: normal bowel sounds, soft, no peritoneal signs. Absent: distended, tenderness - Extremities Exam Extremities exam: Present: warm, radial pulses palpable and symmetrical. Absent : calf tenderness, cyanotic, pedal edema - Neurological Exam Neurological exam: Present: CN II-XII intact, oriented X3, no focal deficits. Absent: pronater drift, facial droop, speech deficit - Skin Skin exam: Present: dry, intact - Patient Status Disposition: Home, Self-Care Condition: Good - Discharge Instructions Instructions: Rivaroxaban (By mouth), Deep Venous Thrombosis (DC) Follow Up With: Terrance Ballesteros MD [Primary Care Provider] - 01/11/18 10:30 am Janae Singh MD [Partnered Physician] - 01/10/18 1:00 pm () - VTE Reasons for not Prescribing Prophylaxis: Not indicated-Anticoagulated or INR therapeutic
[2018-01-02] MEDS ORDERED: *HR* Warfarin 7.5 MG TABLET PO ONE (18:00)
== END 2018-01-02 12:54 | disposition home or self-care (01) | DRG 197 ==
LOC: EMEROO 15:18 → 3ANU 15:18
PROVIDERS: ADMIT Nurse Practitioner Family; ATTEND Nurse Practitioner Family

== ENCOUNTER 2020-09-24 09:09 | Inpatient (IN) ==
[2020-09-24] MEDS ORDERED: Isovue-370 500 ML BOTTLE IVP ONE (09:34)
[2020-09-24 10:04] LABS: INR 1.9; Prothrombin Time 21.2 Seconds (9.4-12.1)
[2020-09-24 10:06] LABS: Basophils % 0.3 %; Eosinophils % 0.2 %; Hematocrit 35.4 % (35.3-44.9); Hemoglobin 11.4 g/dL (11.5-15.4); Immature Granulocytes % 0.5 % (0-4); Lymphocytes # 1.6 K/mcL (0.6-4.6); Lymphocytes % 12.6 %; Mean Corpuscular HGB Conc 32.2 g/dL (31.6-35.5); Mean Corpuscular Hemoglobin 28.1 pg (28.0-33.3); Mean Corpuscular Volume 87.2 fL (83.0-100.0); Mean Platelet Volume 8.7 fL (9.4-12.4); Monocytes # 0.8 K/mcL (0.0-1.3); Neutrophils # 10.3 K/mcL (1.6-8.9); Platelet Count 253 K/mcL (140-400); Red Blood Count 4.06 M/mcL (3.82-4.97); Red Cell Distribution Width 12.9 % (11.5-14.5); Segmented Neutrophils % 80.4 %; White Blood Count 12.8 K/mcL (4.3-11.1)
[2020-09-24 10:07] LABS: Activated Partial Thrombo Time 31.3 Seconds (26.0-36.0)
[2020-09-24 10:22] LABS: Alanine Aminotransferase 13 Units/L (7-52); Albumin 3.6 g/dL (3.5-5.7); Albumin/Globulin Ratio 1.2 (1.1-2.2); Alkaline Phosphatase 69 Units/L (34-104); Aspartate Amino Transferase 13 Units/L (13-39); BUN/Creatinine Ratio 21 (6-26); Bilirubin,Direct 0.3 mg/dL (0.0-0.2); Bilirubin,Indirect 0.6 mg/dL (0.0-1.0); Bilirubin,Total 0.9 mg/dL (0.3-1.0); Blood Urea Nitrogen 12 mg/dL (8-23); Calcium 8.9 mg/dL (8.6-10.3); Carbon Dioxide 23 mEq/L (23-29); Chloride 100 mEq/L (98-107); Glucose 123 mg/dL (70-105); Magnesium 1.8 mg/dL (1.6-2.6); Osmolality,Calculated 277 (280-300); Phosphorous 1.3 mg/dL (2.7-4.5); Potassium 3.5 mEq/L (3.5-5.1); Sodium 133 mEq/L (136-145); Total Protein 6.6 g/dL (6.4-8.9); Troponin I < 0.03 ng/mL (< 0.04); eGFR For African Americans > 60 (> 60); eGFR For Non-African Americans > 60 (> 60)
[2020-09-24 10:28] LABS: Bilirubin,Urine Negative (Negative); Blood,Urine Negative (Negative); Clarity,Urine Clear (Clear); Color,Urine Yellow (Yellow); Glucose,Urine (UA) Normal (Normal); Ketones,Urine Negative (Negative); Leukocyte Esterase,Urine Negative (Negative); Mucus,Urine Few per lpf (None-Few); Nitrite,Urine Negative (Negative); PH,Urine 8.5 pH Units (5.0-8.0); Protein,Urine 30 mg/dL (Neg-Trace); RBC,Urine 0-3 per hpf (0-3); Specific Gravity,Urine 1.024 (1.010-1.025); Squamous Epithelial Cell,Urine Few per hpf (None-Few); WBC,Urine 0-3 per hpf (0-3)
[2020-09-24] MEDS ORDERED: cefTRIAXone 1,000 MG in 0.9 % Sodium Chloride Mini Bag 100 ML IVPB ONE (11:40)
[2020-09-24] MEDS ORDERED: Naloxone 0.4 MG/ML INJ IVP PRN (12:42)
[2020-09-24] MEDS ORDERED: Vancomycin 0 MG in 0.9 % Sodium Chloride 250 ML IVPB SCH (14:00)
[2020-09-24] MEDS ORDERED: Ondansetron 4 MG/2 ML VIAL IVP PRN (14:22)
[2020-09-24] MEDS ORDERED: Dextrose Gel 15 GM/37.5 ML TUBE PO PRN ×2 (14:23)
[2020-09-24] MEDS ORDERED: D5% in Water 1,000 ML IVC PRN (14:23)
[2020-09-24] MEDS ORDERED: *HR* Dextrose 50 % in Water (Vial) 50 ML VIAL IVP PRN (14:23)
[2020-09-24] MEDS: Vancomycin 1,750 MG/517.5 ML IV.SOLN IVPB SCH (14:36)
[2020-09-24] MEDS: *HR* OxyCODONE Immed Rel 5 MG TABLET PO PRN (16:26)
[2020-09-24] MEDS: Insulin LISPRO 300 UNITS/3 ML VIAL SUBQ SCH ×2 (17:41→21:09)
[2020-09-24] MEDS: Melatonin 3 MG TABLET PO SCH (21:08)
[2020-09-24] MEDS: Acetaminophen 325 MG TABLET PO PRN (23:53)
[2020-09-24] MEDS ORDERED: 0.9 % Sodium Chloride 1,000 ML IVC ONE (23:59)
[2020-09-25] MEDS: Vancomycin 1,750 MG/517.5 ML IV.SOLN IVPB SCH ×2 (01:08→15:24)
[2020-09-25] MEDS ORDERED: 0.9 % Sodium Chloride 1,000 ML IVC ONE (01:20)
[2020-09-25 02:36] LABS: Basophils % 0.2 %; Eosinophils % 0.3 %; Hematocrit 29.2 % (35.3-44.9); Hemoglobin 9.2 g/dL (11.5-15.4); Immature Granulocytes % 0.6 % (0-4); Lymphocytes # 1.4 K/mcL (0.6-4.6); Lymphocytes % 14.2 %; Mean Corpuscular HGB Conc 31.5 g/dL (31.6-35.5); Mean Corpuscular Hemoglobin 28.3 pg (28.0-33.3); Mean Corpuscular Volume 89.8 fL (83.0-100.0); Mean Platelet Volume 8.5 fL (9.4-12.4); Monocytes # 0.8 K/mcL (0.0-1.3); Monocytes % 8.2 %; Neutrophils # 7.3 K/mcL (1.6-8.9); Platelet Count 203 K/mcL (140-400); Red Blood Count 3.25 M/mcL (3.82-4.97); Red Cell Distribution Width 13.1 % (11.5-14.5); Segmented Neutrophils % 76.5 %; White Blood Count 9.5 K/mcL (4.3-11.1)
[2020-09-25 02:50] LABS: BUN/Creatinine Ratio 28 (6-26); Blood Urea Nitrogen 16 mg/dL (8-23); Calcium 7.4 mg/dL (8.6-10.3); Carbon Dioxide 20 mEq/L (23-29); Chloride 104 mEq/L (98-107); Glucose 174 mg/dL (70-105); Osmolality,Calculated 277 (280-300); Potassium 3.3 mEq/L (3.5-5.1); Sodium 131 mEq/L (136-145); eGFR For African Americans > 60 (> 60); eGFR For Non-African Americans > 60 (> 60)
[2020-09-25] MEDS: Insulin LISPRO 300 UNITS/3 ML VIAL SUBQ SCH ×4 (07:43→20:41)
[2020-09-25 08:17] LABS: Magnesium 1.7 mg/dL (1.6-2.6); Phosphorous 2.7 mg/dL (2.7-4.5)
[2020-09-25 08:47] LABS: Thyroid Stimulating Hormone 3.716 mcIU/mL (0.340-5.600)
[2020-09-25 09:43] LABS: Estimated Average Glucose 126 mg/dl
[2020-09-25] MEDS: Calcium Gluconate 1gm/50mL 1 GM/50 ML BAG IVPB SCH ×2 (10:15→11:33)
[2020-09-25] MEDS: Gabapentin 300 MG CAPSULE PO SCH ×3 (10:15→20:41)
[2020-09-25] MEDS: *HR* OxyCODONE Immed Rel 5 MG TABLET PO PRN ×2 (10:15→20:42)
[2020-09-25] MEDS: Multivit/Ca/Min/Fe/FA 1 TAB TABLET PO SCH (10:17)
[2020-09-25] MEDS: *HR* Rivaroxaban 15 MG TABLET PO SCH (10:24)
[2020-09-25 11:41] LABS: Hematocrit 33.3 % (35.3-44.9); Hemoglobin 10.3 g/dL (11.5-15.4)
[2020-09-25] MEDS: Melatonin 3 MG TABLET PO SCH (20:41)
[2020-09-25] MEDS: Acetaminophen 325 MG TABLET PO PRN (20:42)
[2020-09-26] MEDS: Vancomycin 1,750 MG/517.5 ML IV.SOLN IVPB SCH ×2 (01:09→15:31)
[2020-09-26 01:43] LABS: Basophils % 0.3 %; Eosinophils # 0.1 K/mcL (0.0-0.6); Eosinophils % 2.2 %; Hematocrit 29.3 % (35.3-44.9); Hemoglobin 9.5 g/dL (11.5-15.4); Immature Granulocytes % 0.3 % (0-4); Lymphocytes # 1.6 K/mcL (0.6-4.6); Lymphocytes % 25.2 %; Mean Corpuscular HGB Conc 32.4 g/dL (31.6-35.5); Mean Corpuscular Hemoglobin 29.1 pg (28.0-33.3); Mean Corpuscular Volume 89.9 fL (83.0-100.0); Mean Platelet Volume 8.6 fL (9.4-12.4); Monocytes # 0.4 K/mcL (0.0-1.3); Monocytes % 6.9 %; Neutrophils # 4.1 K/mcL (1.6-8.9); Platelet Count 213 K/mcL (140-400); Red Blood Count 3.26 M/mcL (3.82-4.97); Red Cell Distribution Width 12.9 % (11.5-14.5); Segmented Neutrophils % 65.1 %; White Blood Count 6.2 K/mcL (4.3-11.1)
[2020-09-26 01:59] LABS: BUN/Creatinine Ratio 21 (6-26); Blood Urea Nitrogen 12 mg/dL (8-23); Carbon Dioxide 21 mEq/L (23-29); Chloride 107 mEq/L (98-107); Glucose 158 mg/dL (70-105); Magnesium 1.9 mg/dL (1.6-2.6); Osmolality,Calculated 283 (280-300); Phosphorous 2.9 mg/dL (2.7-4.5); Potassium 3.6 mEq/L (3.5-5.1); Sodium 135 mEq/L (136-145); eGFR For African Americans > 60 (> 60); eGFR For Non-African Americans > 60 (> 60)
[2020-09-26 02:01] LABS: % Iron Saturation 6 % (15-50); Iron 12 mcg/dL (50-170); Transferrin 138 mg/dL (203-362)
[2020-09-26 02:20] LABS: Ferritin 192 ng/mL (10-120)
[2020-09-26 02:25] LABS: Folate 15.3 ng/mL (3.0-16.0)
[2020-09-26] MEDS ORDERED: Iron Sucrose Complex 400 MG in 0.9 % Sodium Chloride 250 ML IVPB ONE (07:48)
[2020-09-26] MEDS: Multivit/Ca/Min/Fe/FA 1 TAB TABLET PO SCH (08:41)
[2020-09-26] MEDS: Cyanocobalamin (B-12) 1,000 MCG TABLET PO SCH (08:41)
[2020-09-26] MEDS: *HR* Rivaroxaban 15 MG TABLET PO SCH (08:41)
[2020-09-26] MEDS: Gabapentin 300 MG CAPSULE PO SCH ×2 (08:41→14:23)
[2020-09-26] MEDS: Insulin LISPRO 300 UNITS/3 ML VIAL SUBQ SCH ×4 (08:46→20:30)
[2020-09-26] MEDS ORDERED: Multivit/Ca/Min/Fe/FA 1 TAB TABLET PO SCH (09:00)
[2020-09-26] MEDS: *HR* OxyCODONE Immed Rel 5 MG TABLET PO PRN ×2 (09:19→18:51)
[2020-09-26] MEDS: Calcium Gluconate 1gm/50mL 1 GM/50 ML BAG IVPB SCH ×2 (09:28→12:02)
[2020-09-26 14:07] LABS: Hematocrit 28.1 % (35.3-44.9); Hemoglobin 8.7 g/dL (11.5-15.4)
[2020-09-26] MEDS: Piperacillin/Tazobactam 3.375 GM in 0.9 % Sodium Chloride Mini Bag 100 ML IVPB SCH ×2 (14:22→20:28)
[2020-09-26] MEDS: Vancomycin 2,000 MG/520 ML IV.SOLN IVPB SCH (15:40)
[2020-09-26] MEDS ORDERED: Isovue-370 500 ML BOTTLE IVP ONE (16:27)
[2020-09-26] MEDS: Melatonin 3 MG TABLET PO SCH (20:29)
[2020-09-27] MEDS: *HR* OxyCODONE Immed Rel 5 MG TABLET PO PRN ×3 (01:19→23:35)
[2020-09-27] MEDS: Vancomycin 2,000 MG/520 ML IV.SOLN IVPB SCH ×2 (03:31→15:22)
[2020-09-27 05:46] LABS: Hemoglobin 8.8 g/dL (11.5-15.4); Mean Corpuscular HGB Conc 31.4 g/dL (31.6-35.5); Mean Corpuscular Hemoglobin 28.4 pg (28.0-33.3); Mean Corpuscular Volume 90.3 fL (83.0-100.0); Mean Platelet Volume 8.8 fL (9.4-12.4); Platelet Count 223 K/mcL (140-400); Red Cell Distribution Width 13.1 % (11.5-14.5); White Blood Count 4.9 K/mcL (4.3-11.1)
[2020-09-27 06:06] LABS: BUN/Creatinine Ratio 30 (6-26); Blood Urea Nitrogen 12 mg/dL (8-23); Calcium 7.8 mg/dL (8.6-10.3); Carbon Dioxide 24 mEq/L (23-29); Chloride 107 mEq/L (98-107); Glucose 109 mg/dL (70-105); Magnesium 1.7 mg/dL (1.6-2.6); Osmolality,Calculated 284 (280-300); Phosphorous 2.8 mg/dL (2.7-4.5); Potassium 3.7 mEq/L (3.5-5.1); Sodium 137 mEq/L (136-145); eGFR For African Americans > 60 (> 60); eGFR For Non-African Americans > 60 (> 60)
[2020-09-27] MEDS: Piperacillin/Tazobactam 3.375 GM in 0.9 % Sodium Chloride Mini Bag 100 ML IVPB SCH (06:11)
[2020-09-27] MEDS: *HR* Rivaroxaban 15 MG TABLET PO SCH (08:30)
[2020-09-27] MEDS: Multivit/Ca/Min/Fe/FA 1 TAB TABLET PO SCH (08:30)
[2020-09-27] MEDS: Cyanocobalamin (B-12) 1,000 MCG TABLET PO SCH (08:31)
[2020-09-27] MEDS: Insulin LISPRO 300 UNITS/3 ML VIAL SUBQ SCH ×4 (08:33→20:40)
[2020-09-27] MEDS: Calcium Gluconate 1gm/50mL 1 GM/50 ML BAG IVPB SCH ×2 (10:05→12:24)
[2020-09-27] MEDS: Melatonin 3 MG TABLET PO SCH (20:30)
[2020-09-28] MEDS: Vancomycin 2,000 MG/520 ML IV.SOLN IVPB SCH ×2 (03:45→14:45)
[2020-09-28 03:58] LABS: Hematocrit 28.4 % (35.3-44.9); Mean Corpuscular HGB Conc 31.7 g/dL (31.6-35.5); Mean Corpuscular Hemoglobin 28.3 pg (28.0-33.3); Mean Corpuscular Volume 89.3 fL (83.0-100.0); Mean Platelet Volume 8.7 fL (9.4-12.4); Platelet Count 263 K/mcL (140-400); Red Blood Count 3.18 M/mcL (3.82-4.97); White Blood Count 5.2 K/mcL (4.3-11.1)
[2020-09-28 04:14] LABS: BUN/Creatinine Ratio 26 (6-26); Blood Urea Nitrogen 11 mg/dL (8-23); Carbon Dioxide 23 mEq/L (23-29); Chloride 106 mEq/L (98-107); Glucose 104 mg/dL (70-105); Magnesium 1.8 mg/dL (1.6-2.6); Osmolality,Calculated 284 (280-300); Potassium 3.7 mEq/L (3.5-5.1); Sodium 137 mEq/L (136-145); eGFR For African Americans > 60 (> 60); eGFR For Non-African Americans > 60 (> 60)
[2020-09-28] MEDS: Multivit/Ca/Min/Fe/FA 1 TAB TABLET PO SCH (07:34)
[2020-09-28] MEDS: Insulin LISPRO 300 UNITS/3 ML VIAL SUBQ SCH ×4 (07:34→20:24)
[2020-09-28] MEDS: *HR* Rivaroxaban 15 MG TABLET PO SCH (07:34)
[2020-09-28] MEDS: Cyanocobalamin (B-12) 1,000 MCG TABLET PO SCH (07:35)
[2020-09-28] MEDS: Calcium Gluconate 1gm/50mL 1 GM/50 ML BAG IVPB SCH ×2 (10:31→11:09)
[2020-09-28] MEDS: Lactobacillus 1 EACH CAP.SPRINK PO SCH ×2 (10:34→20:18)
[2020-09-28] MEDS: Melatonin 3 MG TABLET PO SCH (20:18)
[2020-09-28] MEDS: *HR* OxyCODONE Immed Rel 5 MG TABLET PO PRN (20:23)
[2020-09-29] MEDS: Vancomycin 2,000 MG/520 ML IV.SOLN IVPB SCH (03:11)
[2020-09-29] MEDS: Acetaminophen 325 MG TABLET PO PRN (03:16)
[2020-09-29 04:19] LABS: Hematocrit 30.9 % (35.3-44.9); Hemoglobin 9.7 g/dL (11.5-15.4); Mean Corpuscular HGB Conc 31.4 g/dL (31.6-35.5); Mean Corpuscular Hemoglobin 28.5 pg (28.0-33.3); Mean Corpuscular Volume 90.9 fL (83.0-100.0); Mean Platelet Volume 8.6 fL (9.4-12.4); Platelet Count 270 K/mcL (140-400); Red Cell Distribution Width 13.2 % (11.5-14.5); White Blood Count 5.5 K/mcL (4.3-11.1)
[2020-09-29 04:38] LABS: BUN/Creatinine Ratio 24 (6-26); Blood Urea Nitrogen 11 mg/dL (8-23); Carbon Dioxide 26 mEq/L (23-29); Chloride 106 mEq/L (98-107); Glucose 90 mg/dL (70-105); Magnesium 1.9 mg/dL (1.6-2.6); Osmolality,Calculated 283 (280-300); Phosphorous 3.2 mg/dL (2.7-4.5); Potassium 3.8 mEq/L (3.5-5.1); Sodium 137 mEq/L (136-145); eGFR For African Americans > 60 (> 60); eGFR For Non-African Americans > 60 (> 60)
[2020-09-29 08:22] VITALS: BP 129/79
[2020-09-29] MEDS: *HR* Rivaroxaban 15 MG TABLET PO SCH (08:26)
[2020-09-29] MEDS: Lactobacillus 1 EACH CAP.SPRINK PO SCH (08:26)
[2020-09-29] MEDS: Multivit/Ca/Min/Fe/FA 1 TAB TABLET PO SCH (08:26)
[2020-09-29] MEDS: Cyanocobalamin (B-12) 1,000 MCG TABLET PO SCH (08:27)
[2020-09-29] MEDS: Insulin LISPRO 300 UNITS/3 ML VIAL SUBQ SCH ×2 (08:27→12:20)
[2020-09-29] MEDS: Calcium Gluconate 1gm/50mL 1 GM/50 ML BAG IVPB SCH ×2 (09:15→10:35)
== END 2020-09-29 13:44 | disposition home health service (06) | DRG 872 ==
LOC: EMEROOARM 09:09 → 3ANU 09:09 → SUATTDRO 12:11 → 3ANU 13:32
PROVIDERS: ADMIT Internal Medicine; ATTEND Internal Medicine